=== PATIENT | female | born 1955 | race Caucasian/White ===

== ENCOUNTER 2017-04-16 07:51 | Day surgery (SDC) | payer BC, OTHER ==
[~2017-04-16 07:51] MED LIST: LIDOCAINE HCL 1% MPF SOL ONE; PROPOFOL 500 MG/50 ML EMU IV ONE
[2017-04-16 09:54] VITALS: TEMP 97.5
[2017-04-16 10:14] VITALS: RESP 18
[2017-04-16 10:29] VITALS: BP 137/75; PULSE 71; O2SAT 100
== END 2017-04-16 10:43 | disposition home or self-care (01) ==
LOC: SURG 07:51
PROVIDERS: ATTEND Internal Medicine Gastroenterology
DX: Z12.11 Encounter for screening for malignant neoplasm of colon (principal); K57.30 Diverticulosis of large intestine without perforation or abscess without bleeding; K64.8 Other hemorrhoids
CPT/HCPCS: J2001; J2704

== ENCOUNTER 2017-10-15 13:21 | Day surgery (SDC) | payer BC ==
[2017-10-15] MEDS ORDERED: DEXAMETHASONE SOD PHOS PF 10 MG/ML SOL IJ ONE (14:13)
[2017-10-15 14:42] VITALS: BP 130/84; PULSE 67; RESP 16; TEMP 97.3; O2SAT 98
== END 2017-10-15 15:10 | disposition home or self-care (01) ==
LOC: SURG 13:21
PROVIDERS: ATTEND Nurse Anesthetist, Certified Registered
DX: M54.18 Radiculopathy, sacral and sacrococcygeal region (principal)
CPT/HCPCS: J2795; J1100

== ENCOUNTER 2017-12-17 13:50 | Day surgery (SDC) | payer BC ==
[2017-12-17] MEDS ORDERED: TRIAMCINOLONE ACETONIDE 40 MG/ML SUS ONE (14:20)
[2017-12-17] MEDS ORDERED: DEXAMETHASONE SOD PHOS PF 10 MG/ML SOL IJ ONE (14:20)
[2017-12-17] MEDS ORDERED: BUPIVACAINE HCL 0.25% MPF 30 ML SOL INFIL ONE (14:20)
[2017-12-17 14:50] VITALS: PULSE 65; RESP 20; TEMP 98.7; O2SAT 95
[2017-12-17 16:30] VITALS: BP 137/76
== END 2017-12-17 15:10 | disposition home or self-care (01) ==
LOC: SURG 13:50
PROVIDERS: ATTEND Nurse Anesthetist, Certified Registered
DX: M51.17 Intervertebral disc disorders with radiculopathy, lumbosacral region (principal)
CPT/HCPCS: J1100; J3300